=== PATIENT | female | born 1945 | race Caucasian/White ===

== ENCOUNTER 2023-11-15 08:44 | Inpatient (IN) ==
[2023-11-15 10:20] LABS: ABS Lymphocytes 0.5 10^3/uL (1.0-4.8); ABS Monocytes 0.5 10^3/uL (0.0-0.9); ABS Neutrophils 1.8 10^3/uL (1.5-7.6); Eosinophil % 0.3 %; Hematocrit 38.8 % (35-45); Hemoglobin 13.9 g/dL (11.5-14.3); Lymphocyte % 18.6 %; Mean Corpuscular Hemoglobin 33.9 pg (27-33); Mean Corpuscular Hgb Conc 35.8 g/dL (31-36); Mean Corpuscular Volume 94.5 fL (80-97); Mean Platelet Volume 7.5 fL (7.5-11.2); Nucleated Red Blood Cells % 0.1 %/100WBC (0.0-0.8); Platelet Count 198 10^3/uL (150-450); Red Blood Count 4.11 10^6/uL (3.63-4.92); Red Cell Distribution Width 13.1 % (12-17); White Blood Count 2.8 10^3/uL (3.8-11.8)
[2023-11-15 10:40] LABS: High Sens Troponin Baseline 10 pg/mL (<15)
[2023-11-15 11:25] LABS: ALT 25 U/L (7-52); Albumin/Globulin Ratio 1.5 (1-3); Alkaline Phosphatase 36 U/L (35-149); Anion Gap 7 mmol/L (2-16); Blood Urea Nitrogen 9 mg/dL (6-24); CO2 Carbon Dioxide 27 mmol/L (22-32); Calcium 8.2 mg/dL (8.6-10.3); Chloride 86 mmol/L (101-111); Creatinine, Serum 0.55 mg/dL (0.51-0.95); Globulin 2.7 g/dL (2-4); Glucose 124 mg/dL (70-100); Sodium 120 mmol/L (135-145); Total Bilirubin 0.4 mg/dL (0.2-1.0); Total Protein 6.7 g/dL (6.4-8.9); eGFR CKD-EPI 94.9 (>60)
[2023-11-15 11:34] LABS: TSH Ultra Thyroid Stim Horm 1.14 mcIU/mL (0.34-5.60)
[2023-11-15 11:52] LABS: High Sensitivity Troponin 1 Hr 8 pg/mL (<15)
[2023-11-15] MEDS: NS 0.9% 500 ml BAG 500 ML IV ONE (13:03)
[2023-11-15 14:49] LABS: Osmolality Serum 260 mOsm/kg (275-295)
[2023-11-15 16:42] LABS: Potassium, Whole Blood 3.5 mmol/L (3.4-4.5)
[2023-11-15 16:55] LABS: Urine Appearance Clear; Urine Bilirubin Negative (Negative); Urine Blood Trace (Negative); Urine Color Light-Yellow; Urine Glucose Negative (Negative); Urine Ketones Negative (Negative); Urine Nitrite Negative (Negative); Urine Protein Negative (Negative); Urine Specific Gravity 1.006 (1.002-1.030); Urine Urobilinogen Negative (Negative); Urine pH 7.5 (5.0-8.0)
[2023-11-15 17:08] LABS: Urine Bacteria Absent /HPF (Absent); Urine Red Blood Cell Trace(0-2/hpf) /HPF (0-Trace); Urine Squamous Epithelial Cell Present /HPF (Absent); Urine White Blood Cell 1+(6-10/hpf) /HPF (0-Trace)
[2023-11-15] MEDS: NS 0.9% 1000 ml BAG 3,000 ML IV ONE (17:10)
[2023-11-15 17:42] LABS: Calcium 8.9 mg/dL (8.6-10.3); Creatinine, Serum 0.46 mg/dL (0.51-0.95); Magnesium 1.8 mg/dL (1.9-2.7); Phosphorus 2.8 mg/dL (2.5-5.0); Potassium 3.8 mmol/L (3.5-5.0); eGFR CKD-EPI 99.1 (>60)
[2023-11-15 17:49] LABS: Activated Partial Thrombo Time 24.6 seconds (26.0-38.0); INR 0.92 (0.83-1.13)
[2023-11-15 18:05] LABS: Urine Osmo 214 mOsm/kg (150-1150)
[2023-11-15] MEDS ORDERED: Heparin 5000 UNITS/ML 1 mL VIAL SUBCUT SCH (21:00)
[2023-11-15] MEDS: Heparin 5000 UNITS/ML 1 mL VIAL SUBCUT SCH (21:42)
[2023-11-16 06:59] LABS: Calcium 8.3 mg/dL (8.6-10.3); Creatinine, Serum 0.44 mg/dL (0.51-0.95); Magnesium 1.8 mg/dL (1.9-2.7); Phosphorus 2.9 mg/dL (2.5-5.0); Potassium 3.6 mmol/L (3.5-5.0); eGFR CKD-EPI 100.2 (>60)
[2023-11-16] MEDS ORDERED: NS 0.9% 1000 ml BAG 3,000 ML IV SCH (09:00)
[2023-11-16] MEDS: Magnesium Sulfate 2 gm BAG 2 GM/50 ML BAG IVPB ONE (09:42)
[2023-11-16] MEDS: NS 0.9% 1000 ml BAG 1,000 ML IV SCH ×2 (10:53→19:17)
[2023-11-16 11:11] LABS: Calcium 8.7 mg/dL (8.6-10.3); Creatinine, Serum 0.49 mg/dL (0.51-0.95); Potassium 3.6 mmol/L (3.5-5.0); eGFR CKD-EPI 97.6 (>60)
[2023-11-16 17:18] LABS: Calcium 8.6 mg/dL (8.6-10.3); Potassium 3.7 mmol/L (3.5-5.0)
[2023-11-16 17:52] LABS: Creatinine, Serum 0.49 mg/dL (0.51-0.95); eGFR CKD-EPI 97.6 (>60)
[2023-11-16 21:48] LABS: Urine Osmo 506 mOsm/kg (150-1150)
[2023-11-17 01:18] LABS: Calcium 8.7 mg/dL (8.6-10.3); Creatinine, Serum 0.48 mg/dL (0.51-0.95); Potassium 3.9 mmol/L (3.5-5.0); eGFR CKD-EPI 98.1 (>60)
[2023-11-17 06:30] LABS: ABS Eosinophils 0.1 10^3/uL (0.0-0.5); ABS Lymphocytes 1.1 10^3/uL (1.0-4.8); ABS Monocytes 0.5 10^3/uL (0.0-0.9); ABS Neutrophils 1.8 10^3/uL (1.5-7.6); Eosinophil % 1.5 %; Hematocrit 37.4 % (35-45); Lymphocyte % 31.3 %; Mean Corpuscular Hgb Conc 34.8 g/dL (31-36); Mean Platelet Volume 7.3 fL (7.5-11.2); Nucleated Red Blood Cells % 0.1 %/100WBC (0.0-0.8); Platelet Count 224 10^3/uL (150-450); Red Blood Count 3.94 10^6/uL (3.63-4.92); White Blood Count 3.5 10^3/uL (3.8-11.8)
[2023-11-17 07:42] LABS: Calcium 8.4 mg/dL (8.6-10.3); Creatinine, Serum 0.49 mg/dL (0.51-0.95); Potassium 3.9 mmol/L (3.5-5.0); eGFR CKD-EPI 97.6 (>60)
[2023-11-17] MEDS: Sulfur Hexaflouride MICROSPHR 25 MG VIAL IV ONE (16:00)
[2023-11-17] MEDS ORDERED: Sulfur Hexaflouride MICROSPHR 25 MG VIAL ONE (16:09)
[2023-11-17 16:52] LABS: Calcium 8.8 mg/dL (8.6-10.3); Creatinine, Serum 0.68 mg/dL (0.51-0.95); Potassium 4.1 mmol/L (3.5-5.0); eGFR CKD-EPI 90.2 (>60)
[2023-11-17 23:37] LABS: Calcium 8.7 mg/dL (8.6-10.3); Potassium 3.8 mmol/L (3.5-5.0)
[2023-11-17 23:43] LABS: Creatinine, Serum 0.55 mg/dL (0.51-0.95); eGFR CKD-EPI 94.9 (>60)
[2023-11-18 06:17] LABS: Hematocrit 36.5 % (35-45); Hemoglobin 12.8 g/dL (11.5-14.3); Mean Corpuscular Hemoglobin 33.4 pg (27-33); Mean Corpuscular Volume 95.5 fL (80-97); Mean Platelet Volume 6.9 fL (7.5-11.2); Platelet Count 225 10^3/uL (150-450); Red Blood Count 3.82 10^6/uL (3.63-4.92); Red Cell Distribution Width 12.8 % (12-17)
[2023-11-18 06:45] LABS: Calcium 8.7 mg/dL (8.6-10.3); Creatinine, Serum 0.53 mg/dL (0.51-0.95); Phosphorus 3.8 mg/dL (2.5-5.0); Potassium 4.1 mmol/L (3.5-5.0); eGFR CKD-EPI 95.8 (>60)
[2023-11-18 08:02] LABS: ABS Eosinophils 0.1 10^3/uL (0.0-0.5); ABS Lymphocytes 1.3 10^3/uL (1.0-4.8); ABS Monocytes 0.6 10^3/uL (0.0-0.9); Eosinophil % 2.9 %; Lymphocyte % 43.1 %; Nucleated Red Blood Cells % 0.1 %/100WBC (0.0-0.8)
[2023-11-18 08:42] LABS: Calcium 8.5 mg/dL (8.6-10.3); Creatinine, Serum 0.48 mg/dL (0.51-0.95); Potassium 3.8 mmol/L (3.5-5.0); eGFR CKD-EPI 98.1 (>60)
[2023-11-18 09:42] LABS: Folate 9.49 ng/mL (5.90-24.80)
[2023-11-19 09:43] VITALS: BP 115/70
== END 2023-11-19 14:42 | disposition home or self-care (01) | DRG 643 ==
LOC: EDHOLD 08:44 → ED 08:44 → SUATTDRO 13:55 → MED 17:26
PROVIDERS: ADMIT Internal Medicine; ATTEND Internal Medicine